=== PATIENT | female | born 1980 | race Caucasian/White ===

== ENCOUNTER 2021-10-04 20:20 | Emergency (ER) | payer MEDICAID ==
[~2021-10-04] VITALS: Ht 154.9 cm; Wt 66.0 kg
[~2021-10-04 20:20] MED LIST: NOCURR
[2021-10-04 20:49] LABS: BASOPHILS % (AUTO) 0.8 % (0.0-2.0); EOSINOPHILS % (AUTO) 0.8 % (1.0-6.0); HEMATOCRIT 37.2 % (36-46); HEMOGLOBIN 12.6 g/dL (12.0-16.0); LYMPHOCYTES # (AUTO) 2.1 K/uL (1.0-4.8); LYMPHOCYTES % (AUTO) 33.7 % (22.0-44.0); MEAN CORPUSCULAR HEMOGLOBIN 31.5 pg (26.0-34.0); MEAN CORPUSCULAR HGB CONC 33.8 G/dL (31.0-37.0); MEAN CORPUSCULAR VOLUME 93 fL (80-100); MONOCYTES # (AUTO) 0.6 K/uL (0.1-1.0); MONOCYTES % (AUTO) 9.2 % (2.0-9.0); NEUTROPHILS # (AUTO) 3.5 K/uL (1.8-7.7); NEUTROPHILS % (AUTO) 55.5 % (40.0-70.0); PLATELET COUNT (AUTO) 339 K/uL (150-450); RED BLOOD CELL COUNT(AUTO) 3.99 MIL/uL (4.00-5.20)
[2021-10-04 20:56] LABS: ANION GAP 10 mmol/L (8-16); CALCIUM, TOTAL 9.4 mg/dL (8.8-10.5); CARBON DIOXIDE 28 mmol/L (22-29); CHLORIDE 105 mmol/L (98-107); CREATININE 0.63 mg/dL (0.60-1.30); GLOMERULAR FILTR. RATE CALC > 60 mL/min (>60); GLUCOSE,RANDOM 110 mg/dL (70-110); POTASSIUM 4.2 mmol/L (3.5-5.1); SODIUM SERUM 143 mmol/L (136-145); UREA NITROGEN, BLOOD 9 mg/dL (7-18)
[2021-10-04 21:08] LABS: ALANINE AMINOTRANSFERASE 39 U/L (12-78); ALBUMIN 3.9 g/dL (3.4-5.0); ALKALINE PHOSPHATASE 115 U/L (46-116); ASPARTATE AMINOTRANSFERASE 39 U/L (15-37); BILIRUBIN,TOTAL 0.2 mg/dL (0.1-1.0); HCG,QUANTITATIVE < 1 mIU/mL (0-6); LIPASE 88 U/L (73-393); TOTAL PROTEIN, SERUM 8.3 g/dL (6.4-8.2)
[2021-10-04] MEDS ORDERED: KETOROLAC TROMETHAMINE 30 MG/ML VIAL IVP ONE (21:30)
[2021-10-04] MEDS ORDERED: IOHEXOL 350 MG/ML 100 ML VIAL ONE (21:34)
[2021-10-04 23:14] LABS: APPEARANCE,URINE CLEAR (CLEAR); BILIRUBIN,URINE NEGATIVE (NEGATIVE); GLUCOSE, URINE (UA) NEGATIVE (NEGATIVE); KETONES,URINE NEGATIVE (NEGATIVE); LEUKOCYTE ESTERASE ,URINE NEGATIVE Leu/uL (NEGATIVE); NITRATE,URINE NEGATIVE (NEGATIVE); OCCULT BLOOD,URINE SMALL (NEGATIVE); PROTEIN,URINE TRACE (NEGATIVE); UROBILINOGEN,URINE <=1.0 mg/dL (<=1.0)
[2021-10-04] MEDS ORDERED: MORPHINE SULFATE 4 MG/ML SYRINGE IVP ONE (23:15)
[2021-10-04 23:32] LABS: BACTERIA,URINE None Seen /HPF (None Seen); RBC,URINE 0-2 /HPF (0-2); SQUAMOUS EPITHELIAL CELL,UR Rare /LPF (None Seen); WBC,URINE 0-2 /HPF (0-5)
[2021-10-05 01:42] VITALS: BP 152/98
[2021-10-05] MEDS ORDERED: IBUP-2070 PO (08:29)
== END 2021-10-05 01:30 | disposition home or self-care (01) ==
LOC: EMS 20:24
DX: R10.31 Right lower quadrant pain (principal)
CPT/HCPCS: 36415; 74177; 76856; 80053; 81001; 83690; 84702; 85025; 96374; 96375; 99285; J1885; J2270; Q9967; 81003

== ENCOUNTER 2021-10-05 07:14 | Emergency (ER) | payer MEDICAID ==
[~2021-10-05] VITALS: Ht 152.4 cm; Wt 75.0 kg
[2021-10-05] MEDS ORDERED: IBUPROFEN 600 MG TABLET PO ONE (08:15)
[2021-10-05] MEDS ORDERED: IBUP-2070 PO (08:29)
[2021-10-05 08:30] VITALS: BP 156/90
== END 2021-10-05 08:39 | disposition home or self-care (01) ==
LOC: EMS 07:19
DX: N83.201 Unspecified ovarian cyst, right side (principal)
CPT/HCPCS: 76856; 99284; Z7502; Z7610

== ENCOUNTER 2022-01-23 15:54 | Emergency (ER) | payer MEDICAID ==
[~2022-01-23] VITALS: Ht 152.4 cm; Wt 68.2 kg
[~2022-01-23 15:54] MED LIST changes: +IBUP-2070 PO
[2022-01-23] MEDS ORDERED: KETOROLAC TROMETHAMINE 30 MG/ML VIAL IM ONE (17:45)
[2022-01-23 17:58] LABS: BASOPHILS % (AUTO) 0.8 % (0.0-2.0); EOSINOPHILS % (AUTO) 1.3 % (1.0-6.0); HEMATOCRIT 32.2 % (36-46); HEMOGLOBIN 10.8 g/dL (12.0-16.0); LYMPHOCYTES # (AUTO) 2.3 K/uL (1.0-4.8); LYMPHOCYTES % (AUTO) 35.3 % (22.0-44.0); MEAN CORPUSCULAR HEMOGLOBIN 31.6 pg (26.0-34.0); MEAN CORPUSCULAR HGB CONC 33.4 G/dL (31.0-37.0); MEAN CORPUSCULAR VOLUME 94 fL (80-100); MONOCYTES # (AUTO) 0.5 K/uL (0.1-1.0); MONOCYTES % (AUTO) 7.7 % (2.0-9.0); NEUTROPHILS # (AUTO) 3.5 K/uL (1.8-7.7); NEUTROPHILS % (AUTO) 54.9 % (40.0-70.0); PLATELET COUNT (AUTO) 264 K/uL (150-450); RED BLOOD CELL COUNT(AUTO) 3.41 MIL/uL (4.00-5.20); RED CELL DISTRIBUTION WIDTH 15.7 % (11.5-14.5)
[2022-01-23 18:07] LABS: ANION GAP 10 mmol/L (8-16); CALCIUM, TOTAL 8.7 mg/dL (8.8-10.5); CARBON DIOXIDE 25 mmol/L (22-29); CHLORIDE 106 mmol/L (98-107); CREATININE 0.65 mg/dL (0.60-1.30); GLOMERULAR FILTR. RATE CALC > 60 mL/min (>60); GLUCOSE,RANDOM 101 mg/dL (70-110); POTASSIUM 3.5 mmol/L (3.5-5.1); SODIUM SERUM 141 mmol/L (136-145); UREA NITROGEN, BLOOD 11 mg/dL (7-18)
[2022-01-23 18:18] LABS: ALANINE AMINOTRANSFERASE 30 U/L (12-78); ALBUMIN 3.3 g/dL (3.4-5.0); ALKALINE PHOSPHATASE 100 U/L (46-116); ASPARTATE AMINOTRANSFERASE 18 U/L (15-37); BILIRUBIN,TOTAL 0.2 mg/dL (0.1-1.0); HCG,QUANTITATIVE < 1 mIU/mL (0-6); LIPASE 90 U/L (73-393); TOTAL PROTEIN, SERUM 6.7 g/dL (6.4-8.2)
[2022-01-23 20:30] VITALS: BP 127/69
== END 2022-01-23 22:19 | disposition home or self-care (01) ==
LOC: EMS 15:54
DX: R10.9 Unspecified abdominal pain (principal); E03.9 Hypothyroidism, unspecified; F17.210 Nicotine dependence, cigarettes, uncomplicated
CPT/HCPCS: 36415; 80053; 81002; 83690; 84702; 85025; 96372; 99283; J1885

== ENCOUNTER 2022-03-04 13:15 | Emergency (ER) | payer MEDICAID ==
[~2022-03-04] VITALS: Ht 152.4 cm; Wt 72.0 kg
[2022-03-04 14:02] VITALS: BP 140/60
[2022-03-04] MEDS ORDERED: SULF-261 PO (14:13)
[2022-03-04] MEDS ORDERED: CEPH-558 PO (14:13)
[2022-03-04] MEDS ORDERED: IBUP-2070 PO (14:13)
[2022-03-04] MEDS ORDERED: IBUPROFEN 600 MG TABLET PO ONE (14:15)
== END 2022-03-04 14:37 | disposition home or self-care (01) ==
LOC: EMS 13:17
DX: S40.262A Insect bite (nonvenomous) of left shoulder, initial encounter (principal); S00.36XA Insect bite (nonvenomous) of nose, initial encounter; L02.414 Cutaneous abscess of left upper limb; E03.9 Hypothyroidism, unspecified; F17.210 Nicotine dependence, cigarettes, uncomplicated; W57.XXXA Bitten or stung by nonvenomous insect and other nonvenomous arthropods, initial encounter; Y93.89 Activity, other specified; Y92.89 Other specified places as the place of occurrence of the external cause; Y99.8 Other external cause status
CPT/HCPCS: 99283

== ENCOUNTER 2022-06-01 11:13 | Emergency (ER) | payer MEDICAID ==
[~2022-06-01] VITALS: Ht 160 cm; Wt 86.4 kg
[~2022-06-01 11:13] MED LIST changes: +CEPH-558 PO; -NOCURR; +SULF-261 PO
[2022-06-01] MEDS ORDERED: IBUPROFEN 600 MG TABLET PO ONE (12:45)
[2022-06-01] MEDS ORDERED: FAMOTIDINE 20 MG TABLET PO ONE (12:45)
[2022-06-01] MEDS ORDERED: MAG HYDROX/AL HYDROX/SIMETH 30 ML SUSP UDCUP PO ONE (12:45)
[2022-06-01] MEDS ORDERED: ONDANSETRON HCL 4 MG TABLET PO ONE (12:45)
[2022-06-01] MEDS ORDERED: POLYMYXIN B/TRIMETHOPRIM 10 ML OPHTHALMIC SOLUTION OS ONE (12:45)
[2022-06-01] MEDS ORDERED: ACETAMINOPHEN 500 MG TABLET PO ONE (12:45)
[2022-06-01 12:46] LABS: BASOPHILS % (AUTO) 0.9 % (0.0-2.0); EOSINOPHILS % (AUTO) 1.2 % (1.0-6.0); HEMATOCRIT 38.1 % (36-46); HEMOGLOBIN 12.4 g/dL (12.0-16.0); LYMPHOCYTES # (AUTO) 1.8 K/uL (1.0-4.8); LYMPHOCYTES % (AUTO) 28.2 % (22.0-44.0); MEAN CORPUSCULAR HEMOGLOBIN 31.9 pg (26.0-34.0); MEAN CORPUSCULAR HGB CONC 32.7 G/dL (31.0-37.0); MEAN CORPUSCULAR VOLUME 98 fL (80-100); MONOCYTES # (AUTO) 0.5 K/uL (0.1-1.0); MONOCYTES % (AUTO) 7.5 % (2.0-9.0); NEUTROPHILS # (AUTO) 3.9 K/uL (1.8-7.7); NEUTROPHILS % (AUTO) 62.2 % (40.0-70.0); PLATELET COUNT (AUTO) 321 K/uL (150-450); RED CELL DISTRIBUTION WIDTH 15.2 % (11.5-14.5)
[2022-06-01 12:46] LABS: COVID AG,FIA SOURCE NASOPHARYNGEAL
[2022-06-01 12:55] LABS: ANION GAP 5 mmol/L (8-16); CALCIUM, TOTAL 9.1 mg/dL (8.8-10.5); CARBON DIOXIDE 30 mmol/L (22-29); CHLORIDE 105 mmol/L (98-107); CREATININE 0.58 mg/dL (0.60-1.30); GLUCOSE,RANDOM 82 mg/dL (70-110); POTASSIUM 3.9 mmol/L (3.5-5.1); SODIUM SERUM 140 mmol/L (136-145); UREA NITROGEN, BLOOD 15 mg/dL (7-18)
[2022-06-01 12:57] LABS: GLOMERULAR FILTR. RATE CALC > 60 mL/min (>60)
[2022-06-01 13:09] LABS: ALANINE AMINOTRANSFERASE 42 U/L (12-78); ALBUMIN 3.5 g/dL (3.4-5.0); ALKALINE PHOSPHATASE 113 U/L (46-116); ASPARTATE AMINOTRANSFERASE 34 U/L (15-37); BILIRUBIN,TOTAL 0.2 mg/dL (0.1-1.0); HCG,QUANTITATIVE < 1 mIU/mL (0-6); LIPASE 106 U/L (73-393); TOTAL PROTEIN, SERUM 7.1 g/dL (6.4-8.2)
[2022-06-01 13:16] LABS: INFLUENZA TYPE A NEGATIVE FOR TYPE A (NEGATIVE); INFLUENZA TYPE B NEGATIVE FOR TYPE B (NEGATIVE)
[2022-06-01 13:39] LABS: APPEARANCE,URINE CLEAR (CLEAR); BILIRUBIN,URINE NEGATIVE (NEGATIVE); GLUCOSE, URINE (UA) NEGATIVE (NEGATIVE); KETONES,URINE NEGATIVE (NEGATIVE); LEUKOCYTE ESTERASE ,URINE NEGATIVE (NEGATIVE); NITRATE,URINE NEGATIVE (NEGATIVE); OCCULT BLOOD,URINE SMALL (NEGATIVE); PH,URINE 6.5 (5.0-8.0); PROTEIN,URINE NEGATIVE (NEGATIVE); SPECIFIC GRAVITIY, URINE 1.025 (1.003-1.030); UROBILINOGEN,URINE <=1.0 mg/dL (<=1.0)
[2022-06-01 13:45] VITALS: BP 115/79
[2022-06-01] MEDS ORDERED: POLYOS OS (13:51)
[2022-06-01] MEDS ORDERED: ONDA-104 PO (13:51)
[2022-06-01 13:57] LABS: SQUAMOUS EPITHELIAL CELL,UR Few /LPF (None Seen)
[2022-06-01 13:58] LABS: BACTERIA,URINE None Seen /HPF (None Seen); RBC,URINE None Seen /HPF (0-2); WBC,URINE 0-2 /HPF (0-5)
== END 2022-06-01 14:38 | disposition home or self-care (01) ==
LOC: EMS 11:44
DX: R11.2 Nausea with vomiting, unspecified (principal); H10.32 Unspecified acute conjunctivitis, left eye; E03.9 Hypothyroidism, unspecified; F17.210 Nicotine dependence, cigarettes, uncomplicated; Z20.822 Contact with and (suspected) exposure to COVID-19
CPT/HCPCS: 99284; 87426; 80053; 81001; 83690; 84702; 85025; 87804; 36415; Q0162

== ENCOUNTER 2022-06-30 05:14 | Emergency (ER) | payer SELFPAY ==
[~2022-06-30] VITALS: Ht 154.9 cm; Wt 81.8 kg
[~2022-06-30 05:14] MED LIST changes: +ONDA-104 PO; +POLYOS OS
[2022-06-30 05:28] VITALS: BP 132/66
[2022-06-30] MEDS ORDERED: ERYTHROMYCIN 0.5% 3.5 GM TUBE OPHTHALMIC OINTMENT OS ONE (05:45)
== END 2022-06-30 06:10 | disposition home or self-care (01) ==
LOC: EMS 05:15
DX: H10.32 Unspecified acute conjunctivitis, left eye (principal); F17.210 Nicotine dependence, cigarettes, uncomplicated; D64.9 Anemia, unspecified; E03.9 Hypothyroidism, unspecified
CPT/HCPCS: 99283

== ENCOUNTER 2022-07-05 10:18 | Emergency (ER) | payer SELFPAY ==
[~2022-07-05] VITALS: Ht 157.5 cm; Wt 84.1 kg
[2022-07-05 10:23] VITALS: BP 116/58
[2022-07-05 10:41] LABS: COVID AG,FIA SOURCE NASAL SWAB
[2022-07-05 11:09] LABS: INFLUENZA TYPE A NEGATIVE FOR TYPE A (NEGATIVE); INFLUENZA TYPE B NEGATIVE FOR TYPE B (NEGATIVE)
== END 2022-07-05 11:59 | disposition left against medical advice (07) ==
LOC: EMS 10:22
DX: R05.9 Cough, unspecified (principal); Z20.822 Contact with and (suspected) exposure to COVID-19
CPT/HCPCS: 87804

== ENCOUNTER 2023-04-20 04:52 | Emergency (ER) | payer MEDICAID, OTHER ==
[~2023-04-20] VITALS: Ht 152.4 cm; Wt 81.8 kg
[~2023-04-20 04:52] MED LIST changes: +ACET-2080 PO; +BACL10TA PO; +IBUP-1492 PO; +IBUP-1554 PO; -IBUP-2070 PO
[2023-04-20 05:03] VITALS: TEMP 98.4
[2023-04-20] MEDS ORDERED: ACETAMINOPHEN 500 MG TABLET PO ONE (05:45)
[2023-04-20] MEDS ORDERED: KETOROLAC TROMETHAMINE 60 MG/2 ML VIAL IM ONE (05:45)
[2023-04-20 06:30] LABS: APPEARANCE,URINE HAZY (CLEAR); BILIRUBIN,URINE NEGATIVE (NEGATIVE); COLOR,URINE YELLOW (YELLOW); GLUCOSE, URINE (UA) NEGATIVE (NEGATIVE); KETONES,URINE NEGATIVE (NEGATIVE); LEUKOCYTE ESTERASE ,URINE MODERATE (NEGATIVE); NITRATE,URINE NEGATIVE (NEGATIVE); OCCULT BLOOD,URINE NEGATIVE (NEGATIVE); PROTEIN,URINE TRACE mg/dL (NEGATIVE); SPECIFIC GRAVITIY, URINE 1.028 (1.003-1.030); UROBILINOGEN,URINE <=1.0 mg/dL (<=1.0)
[2023-04-20] MEDS ORDERED: METHOCARBAMOL 500 MG TABLET PO ONE (06:30)
[2023-04-20] MEDS ORDERED: IBUP-1492 PO (06:32)
[2023-04-20] MEDS ORDERED: METH-659 PO (06:32)
[2023-04-20 06:37] LABS: RBC,URINE 0-2 /HPF (0-2)
[2023-04-20 06:38] LABS: BACTERIA,URINE Few /HPF (None Seen); SQUAMOUS EPITHELIAL CELL,UR Moderate /LPF (None Seen)
[2023-04-20] MEDS ORDERED: SULF-261 PO (06:49)
[2023-04-20 09:38] VITALS: BP 120/70; PULSE 75; RESP 16
== END 2023-04-20 10:24 | disposition home or self-care (01) ==
LOC: EMS 04:55
DX: M54.18 Radiculopathy, sacral and sacrococcygeal region (principal); Z59.00 Homelessness unspecified
CPT/HCPCS: 99283; 81001; 84703; 96372; J1885

== ENCOUNTER 2023-04-27 08:15 | Emergency (ER) | payer OTHER ==
[~2023-04-27] VITALS: Ht 154.9 cm; Wt 86.4 kg
[~2023-04-27 08:15] MED LIST changes: +METH-659 PO
[2023-04-27 08:20] VITALS: BP 110/74; PULSE 72; RESP 18; TEMP 98.6
[2023-04-27] MEDS ORDERED: LIDOCAINE 5% TRANSDERMAL PATCH TD ONE (09:00)
[2023-04-27] MEDS ORDERED: KETOROLAC TROMETHAMINE 30 MG/ML VIAL IM ONE (09:00)
[2023-04-27] MEDS ORDERED: ACETAMINOPHEN 500 MG TABLET PO ONE (09:00)
[2023-04-27] MEDS ORDERED: LIDO700A15 TP (09:02)
[2023-04-27] MEDS ORDERED: IBUP-1492 PO (09:02)
[2023-04-27] MEDS ORDERED: ACET-3385 PO (09:02)
== END 2023-04-27 09:20 | disposition home or self-care (01) ==
LOC: EMS 08:17
DX: S39.012A Strain of muscle, fascia and tendon of lower back, initial encounter (principal); X58.XXXA Exposure to other specified factors, initial encounter; Y93.89 Activity, other specified; Y92.89 Other specified places as the place of occurrence of the external cause; Y99.8 Other external cause status
CPT/HCPCS: 99283; 96372; J1885

== ENCOUNTER 2024-01-01 18:05 | Emergency (ER) | payer OTHER ==
[~2024-01-01] VITALS: Ht 152.4 cm; Wt 83.0 kg
[~2024-01-01 18:05] MED LIST changes: +ACET-3385 PO; +LIDO700A15 TP
[2024-01-01 18:24] LABS: COVID AG,FIA SOURCE NASAL SWAB
[2024-01-01 18:35] LABS: RAPID GROUP A STREP NEGATIVE (NEGATIVE)
[2024-01-01 18:47] LABS: INFLUENZA TYPE A NEGATIVE FOR TYPE A (NEGATIVE); INFLUENZA TYPE B NEGATIVE FOR TYPE B (NEGATIVE); SARS-COV2 (COVID) ANTIGEN,FIA Negative (Negative)
[2024-01-01] MEDS: GuaiFENesin/D-METHORPHAN [SUGAR-FREE] 200-20MG/10 ML SYRUP UDCUP PO ONE (20:18)
[2024-01-01] MEDS: ACETAMINOPHEN 325 MG TABLET PO ONE (20:18)
[2024-01-01] MEDS: IBUPROFEN 400 MG TABLET PO ONE (20:18)
[2024-01-01 20:26] VITALS: BP 121/67; PULSE 79; RESP 18; TEMP 98.2
== END 2024-01-01 20:33 | disposition home or self-care (01) ==
LOC: EMS 18:06
DX: J06.9 Acute upper respiratory infection, unspecified (principal); Z20.822 Contact with and (suspected) exposure to COVID-19; Z98.890 Other specified postprocedural states
CPT/HCPCS: 87430; 87804; 99284; Z7502; Z7610

== ENCOUNTER 2024-01-26 09:18 | Emergency (ER) | payer OTHER ==
[~2024-01-26] VITALS: Ht 152.4 cm; Wt 86.4 kg
[2024-01-26 09:33] VITALS: TEMP 98.2
[2024-01-26] MEDS: LORazepam 1 MG TABLET PO ONE (10:03)
[2024-01-26 10:12] LABS: BASOPHILS % (AUTO) 1.4 % (0.0-2.0); EOSINOPHILS % (AUTO) 0.3 % (1.0-6.0); HEMATOCRIT 33.4 % (36-46); LYMPHOCYTES # (AUTO) 1.7 K/uL (1.0-4.8); LYMPHOCYTES % (AUTO) 24.9 % (22.0-44.0); MEAN CORPUSCULAR HEMOGLOBIN 31.4 pg (26.0-34.0); MEAN CORPUSCULAR VOLUME 95 fL (80-100); MONOCYTES # (AUTO) 0.4 K/uL (0.1-1.0); MONOCYTES % (AUTO) 5.7 % (2.0-9.0); NEUTROPHILS # (AUTO) 4.7 K/uL (1.8-7.7); NEUTROPHILS % (AUTO) 67.7 % (40.0-70.0); PLATELET COUNT (AUTO) 286 K/uL (150-450); RED BLOOD CELL COUNT(AUTO) 3.52 MIL/uL (4.00-5.20); RED CELL DISTRIBUTION WIDTH 14.7 % (11.5-14.5)
[2024-01-26 10:20] LABS: ANION GAP 9 mmol/L (8-16); CALCIUM, TOTAL 8.7 mg/dL (8.8-10.5); CARBON DIOXIDE 25 mmol/L (22-29); CHLORIDE 105 mmol/L (98-107); CREATININE 0.46 mg/dL (0.60-1.30); GLOMERULAR FILTR. RATE CALC > 60 mL/min (>60); GLUCOSE,RANDOM 86 mg/dL (70-110); POTASSIUM 3.9 mmol/L (3.5-5.1); SODIUM SERUM 139 mmol/L (136-145); UREA NITROGEN, BLOOD 12 mg/dL (7-18)
[2024-01-26 10:28] LABS: TROPONIN I-HIGH SENSITIVITY 9 ng/L (<51)
[2024-01-26] MEDS ORDERED: LORA-999 PO (10:52)
[2024-01-26 11:05] VITALS: BP 112/56; PULSE 70; RESP 20
[2024-01-26] MEDS: KETOROLAC TROMETHAMINE 60 MG/2 ML VIAL IM ONE (11:15)
[2024-01-26] MEDS ORDERED: MAG30ORA11 PO (21:11)
[2024-01-26] MEDS ORDERED: OMEP20 PO (21:11)
[2024-01-26] MEDS ORDERED: DIPH50CA37 PO (21:11)
== END 2024-01-26 11:26 | disposition home or self-care (01) ==
LOC: EMS 09:22
DX: F41.9 Anxiety disorder, unspecified (principal); R07.89 Other chest pain
CPT/HCPCS: 99284; 80048; 84484; 85025; 36415; 93005; 96372; J1885

== ENCOUNTER 2024-01-26 19:10 | Emergency (ER) | payer OTHER ==
[~2024-01-26] VITALS: Ht 152.4 cm; Wt 88.6 kg
[~2024-01-26 19:10] MED LIST changes: -ACET-2080 PO; -ACET-3385 PO; -BACL10TA PO; -CEPH-558 PO; -IBUP-1492 PO; -IBUP-1554 PO; -LIDO700A15 TP; +LORA-999 PO; -METH-659 PO; -ONDA-104 PO; -POLYOS OS; -SULF-261 PO
[2024-01-26 19:19] VITALS: TEMP 98
[2024-01-26 19:36] LABS: BASOPHILS % (AUTO) 0.6 % (0.0-2.0); EOSINOPHILS % (AUTO) 1.2 % (1.0-6.0); HEMATOCRIT 33.6 % (36-46); HEMOGLOBIN 11.1 g/dL (12.0-16.0); LYMPHOCYTES # (AUTO) 2.5 K/uL (1.0-4.8); LYMPHOCYTES % (AUTO) 35.7 % (22.0-44.0); MEAN CORPUSCULAR HEMOGLOBIN 31.5 pg (26.0-34.0); MEAN CORPUSCULAR HGB CONC 33.2 G/dL (31.0-37.0); MEAN CORPUSCULAR VOLUME 95 fL (80-100); MONOCYTES # (AUTO) 0.6 K/uL (0.1-1.0); MONOCYTES % (AUTO) 8.2 % (2.0-9.0); NEUTROPHILS # (AUTO) 3.8 K/uL (1.8-7.7); NEUTROPHILS % (AUTO) 54.3 % (40.0-70.0); PLATELET COUNT (AUTO) 301 K/uL (150-450); RED BLOOD CELL COUNT(AUTO) 3.53 MIL/uL (4.00-5.20); RED CELL DISTRIBUTION WIDTH 14.6 % (11.5-14.5)
[2024-01-26 19:51] LABS: TROPONIN I-HIGH SENSITIVITY 9 ng/L (<51)
[2024-01-26 19:57] LABS: ANION GAP 3 mmol/L (8-16); CALCIUM, TOTAL 8.8 mg/dL (8.8-10.5); CARBON DIOXIDE 29 mmol/L (22-29); CHLORIDE 103 mmol/L (98-107); CREATININE 0.76 mg/dL (0.60-1.30); GLOMERULAR FILTR. RATE CALC > 60 mL/min (>60); GLUCOSE,RANDOM 101 mg/dL (70-110); POTASSIUM 3.8 mmol/L (3.5-5.1); SODIUM SERUM 135 mmol/L (136-145); UREA NITROGEN, BLOOD 20 mg/dL (7-18)
[2024-01-26] MEDS ORDERED: OMEP20 PO (21:11)
[2024-01-26] MEDS ORDERED: MAG30ORA11 PO (21:11)
[2024-01-26] MEDS ORDERED: DIPH50CA37 PO (21:11)
[2024-01-26] MEDS: LORazepam 2 MG/ML VIAL IM ONE (21:13)
[2024-01-26] MEDS: ACETAMINOPHEN 500 MG TABLET PO ONE (21:13)
[2024-01-26] MEDS: OMEPRAZOLE 20 MG CAPSULE PO ONE (21:13)
[2024-01-26 21:20] VITALS: BP 121/63; PULSE 72; RESP 18
== END 2024-01-26 21:46 | disposition home or self-care (01) ==
LOC: EMS 19:10
DX: K21.9 Gastro-esophageal reflux disease without esophagitis (principal); F15.10 Other stimulant abuse, uncomplicated; R07.89 Other chest pain; Z59.00 Homelessness unspecified; Z98.890 Other specified postprocedural states
CPT/HCPCS: 99285; 71045; 80048; 84484; 85025; 36415; 93005; 96372; J2060

== ENCOUNTER 2024-05-04 14:42 | Emergency (ER) | payer OTHER ==
[~2024-05-04] VITALS: Ht 160 cm; Wt 65.9 kg
[~2024-05-04 14:42] MED LIST changes: +DIPH50CA37 PO; +MAG30ORA11 PO; +OMEP20 PO
[2024-05-04 15:15] VITALS: BP 119/49; PULSE 79; RESP 18; TEMP 98.3; O2SAT 98
[2024-05-04 15:17] LABS: COVID AG,FIA SOURCE NASAL SWAB
[2024-05-04 16:08] LABS: SARS-COV2 (COVID) ANTIGEN,FIA Negative (Negative)
[2024-05-04 16:10] LABS: INFLUENZA TYPE A NEGATIVE FOR TYPE A (NEGATIVE); INFLUENZA TYPE B NEGATIVE FOR TYPE B (NEGATIVE)
[2024-05-04] MEDS ORDERED: BENZ-227 PO (17:44)
[2024-05-04] MEDS ORDERED: IBUP-1554 PO (17:44)
[2024-05-04] MEDS ORDERED: GUAIFDM PO (17:44)
[2024-05-04] MEDS ORDERED: ACET-66 PO (17:44)
[2024-05-04] MEDS: IBUPROFEN 600 MG TABLET PO ONE (18:08)
[2024-05-04] MEDS: GuaiFENesin/D-METHORPHAN [SUGAR-FREE] 200-20MG/10 ML SYRUP UDCUP PO ONE (18:08)
[2024-05-04] MEDS: ACETAMINOPHEN 500 MG TABLET PO ONE (18:09)
== END 2024-05-04 18:12 | disposition home or self-care (01) ==
LOC: EMS 14:42
DX: J06.9 Acute upper respiratory infection, unspecified (principal); B97.89 Other viral agents as the cause of diseases classified elsewhere; R51.9 Headache, unspecified; K74.60 Unspecified cirrhosis of liver; E03.9 Hypothyroidism, unspecified; Z20.822 Contact with and (suspected) exposure to COVID-19
CPT/HCPCS: 87804; 99284; Z7502; Z7610

== ENCOUNTER 2024-07-13 09:42 | Emergency (ER) | payer OTHER ==
[~2024-07-13] VITALS: Ht 157.5 cm; Wt 91.0 kg
[~2024-07-13 09:42] MED LIST changes: +ACET-66 PO; +BENZ-227 PO; -DIPH50CA37 PO; +GUAIFDM PO; +IBUP-1554 PO; -LORA-999 PO; -MAG30ORA11 PO; -OMEP20 PO
[2024-07-13 09:57] VITALS: BP 129/72; PULSE 66; RESP 16; TEMP 98.4; O2SAT 98
[2024-07-13 11:19] LABS: BASOPHILS % (AUTO) 1.1 % (0.0-2.0); EOSINOPHILS % (AUTO) 1.2 % (1.0-6.0); HEMATOCRIT 38.9 % (36-46); HEMOGLOBIN 12.6 g/dL (12.0-16.0); LYMPHOCYTES # (AUTO) 2.2 K/uL (1.0-4.8); LYMPHOCYTES % (AUTO) 30.4 % (22.0-44.0); MEAN CORPUSCULAR HGB CONC 32.3 G/dL (31.0-37.0); MEAN CORPUSCULAR VOLUME 96 fL (80-100); MONOCYTES # (AUTO) 0.5 K/uL (0.1-1.0); MONOCYTES % (AUTO) 6.7 % (2.0-9.0); NEUTROPHILS # (AUTO) 4.3 K/uL (1.8-7.7); NEUTROPHILS % (AUTO) 60.6 % (40.0-70.0); PLATELET COUNT (AUTO) 331 K/uL (150-450); RED BLOOD CELL COUNT(AUTO) 4.06 MIL/uL (4.00-5.20); RED CELL DISTRIBUTION WIDTH 15.7 % (11.5-14.5); WHITE BLOOD COUNT (AUTO) 7.1 K/uL (4.5-11.0)
[2024-07-13 11:39] LABS: ANION GAP 6 mmol/L (8-16); CALCIUM, TOTAL 8.8 mg/dL (8.8-10.5); CARBON DIOXIDE 28 mmol/L (22-29); CHLORIDE 102 mmol/L (98-107); CREATININE 0.65 mg/dL (0.60-1.30); GLOMERULAR FILTR. RATE CALC > 60 mL/min (>60); GLUCOSE,RANDOM 102 mg/dL (70-110); POTASSIUM 4.1 mmol/L (3.5-5.1); SODIUM SERUM 136 mmol/L (136-145); UREA NITROGEN, BLOOD 16 mg/dL (7-18)
== END 2024-07-13 13:41 | disposition home or self-care (01) ==
LOC: EMS 09:42
DX: R76.12 Nonspecific reaction to cell mediated immunity measurement of gamma interferon antigen response without active tuberculosis (principal); E03.9 Hypothyroidism, unspecified; K74.60 Unspecified cirrhosis of liver; Z98.51 Tubal ligation status
CPT/HCPCS: 71046; 80048; 85025; 99284; 36415-L1; 36415-TC

== ENCOUNTER 2024-08-05 18:05 | Emergency (ER) | payer OTHER ==
[~2024-08-05] VITALS: Ht 152.4 cm; Wt 87.7 kg
[2024-08-05 19:23] VITALS: TEMP 98.7
[2024-08-05 19:34] VITALS: BP 109/68; PULSE 86; RESP 18; O2SAT 100
[2024-08-05 20:13] LABS: BASOPHILS % (AUTO) 0.8 % (0.0-2.0); EOSINOPHILS % (AUTO) 1.2 % (1.0-6.0); HEMATOCRIT 38.6 % (36-46); HEMOGLOBIN 12.9 g/dL (12.0-16.0); LYMPHOCYTES # (AUTO) 2.1 K/uL (1.0-4.8); MEAN CORPUSCULAR HEMOGLOBIN 31.4 pg (26.0-34.0); MEAN CORPUSCULAR HGB CONC 33.4 G/dL (31.0-37.0); MEAN CORPUSCULAR VOLUME 94 fL (80-100); MONOCYTES # (AUTO) 0.5 K/uL (0.1-1.0); MONOCYTES % (AUTO) 8.3 % (2.0-9.0); NEUTROPHILS # (AUTO) 3.5 K/uL (1.8-7.7); NEUTROPHILS % (AUTO) 55.7 % (40.0-70.0); PLATELET COUNT (AUTO) 291 K/uL (150-450); WHITE BLOOD COUNT (AUTO) 6.2 K/uL (4.5-11.0)
[2024-08-05 20:18] LABS: ANION GAP 10 mmol/L (8-16); CALCIUM, TOTAL 8.5 mg/dL (8.8-10.5); CARBON DIOXIDE 24 mmol/L (22-29); CHLORIDE 107 mmol/L (98-107); GLOMERULAR FILTR. RATE CALC > 60 mL/min (>60); GLUCOSE,RANDOM 103 mg/dL (70-110); POTASSIUM 3.7 mmol/L (3.5-5.1); SODIUM SERUM 141 mmol/L (136-145); UREA NITROGEN, BLOOD 10 mg/dL (7-18)
[2024-08-05 20:32] LABS: ALCOHOL, BLOOD (SERUM) 216 mg/dL (0-10)
[2024-08-05 20:34] LABS: COVID AG,FIA SOURCE NASAL SWAB
[2024-08-05 20:38] LABS: APPEARANCE,URINE CLEAR (CLEAR); BILIRUBIN,URINE NEGATIVE (NEGATIVE); COLOR,URINE YELLOW (YELLOW); GLUCOSE, URINE (UA) NEGATIVE (NEGATIVE); KETONES,URINE NEGATIVE (NEGATIVE); LEUKOCYTE ESTERASE ,URINE NEGATIVE (NEGATIVE); NITRATE,URINE NEGATIVE (NEGATIVE); OCCULT BLOOD,URINE SMALL (NEGATIVE); PROTEIN,URINE TRACE mg/dL (NEGATIVE); SPECIFIC GRAVITIY, URINE 1.018 (1.003-1.030); UROBILINOGEN,URINE <=1.0 mg/dL (<=1.0)
[2024-08-05] MEDS: LORazepam 2 MG/ML VIAL IM ONE (20:40)
[2024-08-05] MEDS: DiphenhydrAMINE HCL 50 MG/ML VIAL IM ONE (20:40)
[2024-08-05] MEDS: HALOPERIDOL LACTATE 5 MG/ML VIAL IM ONE (20:42)
[2024-08-05 20:45] LABS: ALCOHOL, URINE DRUG SCREEN POSITIVE (NEGATIVE); AMPHET/METH SCREEN,URINE NEGATIVE (NEGATIVE); BARBITURATE SCREEN, URINE NEGATIVE (NEGATIVE); BENZODIAZEPINES SCREEN,URINE NEGATIVE (NEGATIVE); CANNABINOID SCREEN,URINE NEGATIVE (NEGATIVE); COCAINE SCREEN,URINE NEGATIVE (NEGATIVE); METHADONE SCREEN, URINE NEGATIVE (NEGATIVE); OPIATE SCREEN,URINE NEGATIVE (NEGATIVE); PHENCYCLIDINE SCREEN,URINE NEGATIVE (NEGATIVE)
[2024-08-05 20:53] LABS: SARS-COV2 (COVID) ANTIGEN,FIA Negative (Negative)
[2024-08-05 21:46] LABS: BACTERIA,URINE Rare /HPF (None Seen); RBC,URINE 0-2 /HPF (0-2); WBC,URINE 0-2 /HPF (0-5)
== END 2024-08-05 23:35 | disposition home or self-care (01) ==
LOC: EMS 18:05
DX: R45.851 Suicidal ideations (principal); E03.9 Hypothyroidism, unspecified; R44.0 Auditory hallucinations; K74.60 Unspecified cirrhosis of liver; Z98.51 Tubal ligation status; Z98.890 Other specified postprocedural states; Z20.822 Contact with and (suspected) exposure to COVID-19
CPT/HCPCS: 99285; 87426; 80048; 81001; 85025; 36415; 96372; 80307; G0480; J1200; J1630; J2060

== ENCOUNTER 2024-08-19 16:43 | Emergency (ER) | payer OTHER ==
[~2024-08-19] VITALS: Ht 157.5 cm; Wt 86.4 kg
[2024-08-19 16:48] VITALS: TEMP 98
[2024-08-19 20:40] VITALS: BP 115/70; PULSE 75; RESP 17; O2SAT 98
== END 2024-08-19 22:01 | disposition left against medical advice (07) ==
LOC: EMS 16:43
DX: M79.645 Pain in left finger(s) (principal); Z53.21 Procedure and treatment not carried out due to patient leaving prior to being seen by health care provider
CPT/HCPCS: 73130-TC

== ENCOUNTER 2024-08-22 06:44 | Emergency (ER) | payer OTHER ==
[~2024-08-22] VITALS: Ht 152.4 cm; Wt 84.1 kg
[2024-08-22 06:54] VITALS: BP 129/78; PULSE 99; RESP 18; TEMP 98.5; O2SAT 99
== END 2024-08-22 08:10 | disposition left against medical advice (07) ==
LOC: EMS 06:45
DX: L29.9 Pruritus, unspecified (principal); Z53.21 Procedure and treatment not carried out due to patient leaving prior to being seen by health care provider

== ENCOUNTER 2024-11-12 03:58 | Emergency (ER) | payer OTHER ==
[~2024-11-12] VITALS: Ht 152.4 cm; Wt 88.6 kg
[2024-11-12 04:02] VITALS: TEMP 98.1
[2024-11-12 08:21] VITALS: BP 118/72; PULSE 85; RESP 16; O2SAT 99
== END 2024-11-12 10:04 | disposition home or self-care (01) ==
LOC: EMS 03:58
DX: F10.20 Alcohol dependence, uncomplicated (principal); F15.20 Other stimulant dependence, uncomplicated; F17.210 Nicotine dependence, cigarettes, uncomplicated; Z98.51 Tubal ligation status; Y90.8 Blood alcohol level of 240 mg/100 ml or more
CPT/HCPCS: 99281; Z7502

== ENCOUNTER 2025-02-26 11:11 | Emergency (ER) | payer OTHER ==
[~2025-02-26] VITALS: Ht 152.4 cm; Wt 90.0 kg
[2025-02-26 11:21] VITALS: BP 112/68; PULSE 78; RESP 18; TEMP 99; O2SAT 20
[2025-02-26] MEDS ORDERED: NEOMYCIN/POLYMYXIN B/HYDROCORT 10 ML OTIC SOLUTION AD ONE (11:45)
== END 2025-02-26 12:11 | disposition home or self-care (01) ==
LOC: EMS 11:30
DX: H60.8X1 Other otitis externa, right ear (principal); L29.9 Pruritus, unspecified; K74.60 Unspecified cirrhosis of liver; F17.210 Nicotine dependence, cigarettes, uncomplicated; F10.90 Alcohol use, unspecified, uncomplicated; F15.90 Other stimulant use, unspecified, uncomplicated; Z98.890 Other specified postprocedural states; Z98.51 Tubal ligation status; Y90.9 Presence of alcohol in blood, level not specified
CPT/HCPCS: 99282; Z7502; Z7610